=== PATIENT | female | born 1990 | race American Indian/Alaskan Native ===

== ENCOUNTER 2021-10-25 14:18 | Emergency (ER) | payer MEDICAID ==
--- NOTE | 2021-10-25 15:36 | XRay Report ---
XR hand 3+V LT INDICATION / CLINICAL INFORMATION: hand injury. COMPARISON: None available. FINDINGS: No acute fracture. Normal alignment. Joint spaces are preserved. No destructive osseous lesion or s uspicious periosteal reaction. Impression: 1.No acute fracture. Signer Name: Fadi Orr MD Signed: 10/25/2021 3:31 PM Workstation Name: [id number]
[2021-10-25] MEDS ORDERED: HYDROcodone/ACETAMINOPHEN 5-325 MG TAB PO ONE (19:27)
[2021-10-25] MEDS ORDERED: IBUPROFEN 800 MG TAB PO ONE (19:27)
--- NOTE | 2021-10-25 19:28 | Emergency Department Report ---
ED Upper Extremity Inj HPI - General Chief Complaint: Extremity Injury, Upper Stated Complaint: LEFT WRIST AND TWO FINGERS HURTING FROM A FALL Source: patient Mode of arrival: Ambulatory Limitations: No Limitations - History of Present Illness Initial Comments: 31-year-old female no significant past medical history reports left hand pain due to fall from mechanical bull hitting her hand on a metal bar. No other acute symptoms reported range of motion is still intact. - Related Data Previous Rx's Medication Instructions Recorded Last Taken Type Ibuprofen [Motrin] 800 mg PO Q8HR PRN 7 Days #21 10/25/21 Unknown Rx tablet Allergies Allergy/AdvReac Type Severity Reaction Status Date / Time No Known Allergies Allergy Verified 10/25/21 14:59 ED Review of Systems ROS: Stated complaint: LEFT WRIST AND TWO FINGERS HURTING FROM A FALL Other details as noted in HPI Constitutional: denies: chills, fever Eyes: denies: eye pain, eye discharge, vision change ENT: denies: ear pain, throat pain Respiratory: denies: cough, shortness of breath, wheezing Cardiovascular: denies: chest pain, palpitations Endocrine: no symptoms reported Gastrointestinal: denies: abdominal pain, nausea, diarrhea Genitourinary: denies: urgency, dysuria, discharge Musculoskeletal: other (Left hand pain). denies: back pain, joint swelling, arthralgia Skin: denies: rash, lesions Neurological: denies: headache, weakness, paresthesias Psychiatric: denies: anxiety, depression Hematological/Lymphatic: denies: easy bleeding, easy bruising ED Past Medical Hx - Medications Home Medications: Home Medications Medication Instructions Recorded Confirmed Last Taken Type Ibuprofen [Motrin] 800 mg PO Q8HR PRN 7 Days #21 10/25/21 Unknown Rx tablet ED Physical Exam - General Limitations: No Limitations General appearance: alert, in no apparent distress - Head Head exam: Present: atraumatic, normocephalic - Eye Eye exam: Present: normal appearance - ENT ENT exam: Present: mucous membranes moist - Neck Neck exam: Present: normal inspection - Respiratory Respiratory exam: Present: normal lung sounds bilaterally. Absent: respiratory distress - Cardiovascular Cardiovascular Exam: Present: regular rate, normal rhythm. Absent: systolic murmur, diastolic murmur, rubs, gallop - GI/Abdominal GI/Abdominal exam: Present: soft, normal bowel sounds - Extremities Exam Extremities exam: Present: normal inspection - Expanded Upper Extremity Exam Left Hand Wrist exam: Present: full ROM, tenderness. Absent: swelling, laceration, deformity - Back Exam Back exam: Present: normal inspection - Neurological Exam Neurological exam: Present: alert, oriented X3 - Psychiatric Psychiatric exam: Present: normal affect, normal mood - Skin Skin exam: Present: warm, dry, intact, normal color. Absent: rash ED Course Vital Signs 10/25/21 10/25/21 15:00 20:27 Temperature 98.6 F Pulse Rate 94 H 80 Respiratory 16 18 Rate Blood Pressure 173/87 147/94 [Left] O2 Sat by Pulse 100 100 Oximetry ED Medical Decision Making - Radiology Data [facility] [address] [place] [address] XRay Report Signed Patient: CHICO JEFFREY MR#: [id number] : 1990 Acct:[id number] Age/Sex: 31 / F ADM Date: 10/25/21 Loc: ED Attending Dr: Ordering Physician: ED MD MICHAEL Date of Service: 10/25/21 Procedure(s): XR hand 3+V LT Accession Number(s): [id number] cc: ED MD MICAHEL Fluoro Time In Minutes: XR hand 3+V LT INDICATION / CLINICAL INFORMATION: hand injury. COMPARISON: None available. FINDINGS: No acute fracture. Normal alignment. Joint spaces are preserved. No destructive osseous lesion or suspicious periosteal reaction. Impression: 1.No acute fracture. Signer Name: Fadi Orr MD Signed: 10/25/2021 3:31 PM Workstation Name: [id number] Transcribed By: Dictated By: Fadi Orr MD Electronically Authenticated By: Fadi Orr MD Signed Date/Time: 10/25/211530 DD/ 30 TD/TT: - Medical Decision Making 31-year-old female no significant past medical history reports left hand pain due to fall from mechanical bull hitting her hand on a metal bar. No other acute symptoms reported range of motion is still intact. No decrease sensation. No No deformity noted X-ray is negative for any acute fracture or dislocation. Patient received pain medicine while here in ER. Patient is stable for discharge. Patient agrees and understood stands plan of care and verbalizes understanding. Critical care attestation.: If time is entered above; I have spent that time in minutes in the direct care of this critically ill patient, excluding procedure time. ED Disposition Clinical Impression: Injury of left hand Qualifiers: Encounter type: initial encounter Qualified Code(s): S69.92XA - Unspecified injury of left wrist, hand and finger(s), initial encounter Disposition: HOME / SELF CARE / HOMELESS Is pt being admited?: No Does the pt Need Aspirin: No Condition: Stable Instructions: Hand Pain Additional Instructions: Please return back to the ER if symptoms get worse. Follow-up primary care provider as needed. Prescriptions: Ibuprofen [Motrin] 800 mg PO Q8HR PRN 7 Days #21 tablet PRN Reason: Pain , Severe (7-10) Time of Disposition: 19:29
[2021-10-25 20:28] VITALS: BP 147/94
== END 2021-10-25 21:09 | disposition home or self-care (01) ==
LOC: ED 14:18
DX: S69.92XA Unspecified injury of left wrist, hand and finger(s), initial encounter (principal); X58.XXXA Exposure to other specified factors, initial encounter; Y93.89 Activity, other specified; Y92.89 Other specified places as the place of occurrence of the external cause; Y99.8 Other external cause status
CPT/HCPCS: 99283